=== PATIENT | male | born 2000 | race Caucasian/White ===

== ENCOUNTER 2023-04-26 13:20 | Emergency (ER) | payer MEDICAID ==
[~2023-04-26] VITALS: Ht 182.9 cm; Wt 139.0 kg
[2023-04-26 13:23] VITALS: BP 132/79; PULSE 120; RESP 20; TEMP 98.6; O2SAT 100
== END 2023-04-26 14:47 | disposition left against medical advice (07) ==
LOC: ER 13:20
DX: R06.02 Shortness of breath (principal); I10 Essential (primary) hypertension; Z77.22 Contact with and (suspected) exposure to environmental tobacco smoke (acute) (chronic); Z88.8 Allergy status to other drugs, medicaments and biological substances; Z53.21 Procedure and treatment not carried out due to patient leaving prior to being seen by health care provider
CPT/HCPCS: 71045; 99283